=== PATIENT | female | born 1955 | race African-American/Black ===

== ENCOUNTER 2021-07-12 11:00 | Observation (INO) | payer MEDICARE ==
[~2021-07-12] VITALS: Ht 172.7 cm; Wt 109.8 kg
[2021-07-12 13:38] LABS: BASOPHILS % 0.3 % (0.0-1.0); EOSINOPHILS # (AUTO) 0.4 (0.0-0.4); HEMATOCRIT 35.6 % (34.2-44.1); HEMOGLOBIN 11.3 g/dL (12.0-16.0); LYMPHOCYTES # (AUTO) 1.9 (1.0-3.2); LYMPHOCYTES % 26.7 % (18.0-39.1); MEAN CORPUSCULAR HEMOGLOBIN 31.3 pg (28-32); MEAN CORPUSCULAR HGB CONC 31.7 g/dL (31-35); MEAN CORPUSCULAR VOLUME 98.6 fL (81-99); MONOCYTES # (AUTO) 0.6 (0.2-0.8); MONOCYTES % 7.9 % (4.4-11.3); NEUTROPHILS # (AUTO) 4.3 (2.1-6.9); NEUTROPHILS % 59.8 % (38.7-80.0); PLATELET COUNT 179 x10e3/uL (140-360); RED BLOOD COUNT 3.61 x10e6/uL (3.6-5.1); RED CELL DISTRIBUTION WIDTH 14.2 % (11.7-14.4)
[2021-07-12] MEDS ORDERED: ONDANSETRON HCL INJ 2MG/ML 2ML 2 MG/ML VIAL IV PRN (14:00)
[2021-07-12 14:08] LABS: INR 1.14; PROTHROMBIN TIME 15.6 seconds (11.9-14.5)
[2021-07-12 14:09] LABS: PARTIAL THROMBOPLASTIN TIME 43.5 seconds (23.8-35.5)
[2021-07-12 14:19] LABS: ALBUMIN 3.4 g/dL (3.5-5.0); ALBUMIN/GLOBULIN RATIO 0.7 (0.8-2.0); ANION GAP 22.2 mmol/L (8-16); CALCIUM 8.6 mg/dL (8.4-10.2); CREATININE, SERUM 8.06 mg/dL (0.57-1.11); MAGNESIUM 2.3 MG/DL (1.3-2.1); POTASSIUM 5.2 mmol/L (3.5-5.1)
[2021-07-12 14:27] LABS: CREATINE KINASE MB 0.9 ng/mL (0-5.0)
[2021-07-12] MEDS ORDERED: SOD POLYSTYRENE SULFONATE SUSP 15 GM/60 ML BTL PO ONE (16:30)
[2021-07-12 16:44] VITALS: BP 105/90
[2021-07-12 16:49] VITALS: BP 105/90
[2021-07-12 17:07] LABS: EOSINOPHILS % (MANUAL) 8 % (0-7); LYMPHOCYTES % (MANUAL) 24 % (19-48); MONOCYTES % (MANUAL) 8 % (3.4-9.0); NEUTROPHILS % (MANUAL) 58 % (40-74)
[2021-07-12 17:08] LABS: PLATELET ESTIMATE ADEQUATE; PLATELET MORPHOLOGY COMMENT NORMAL; RBC MORPHOLOGY COMMENT NORMAL
[2021-07-12 19:56] VITALS: BP 105/90
[2021-07-12 20:00] VITALS: BP 89/53
[2021-07-13] VITALS (7 sets, daily range): BP systolic 93–141; BP diastolic 57–88
[2021-07-13 05:44] LABS: BASOPHILS % 0.3 % (0.0-1.0); EOSINOPHILS # (AUTO) 0.3 (0.0-0.4); EOSINOPHILS % 4.8 % (0.0-6.0); HEMATOCRIT 31.5 % (34.2-44.1); HEMOGLOBIN 10.2 g/dL (12.0-16.0); LYMPHOCYTES # (AUTO) 1.6 (1.0-3.2); MEAN CORPUSCULAR HEMOGLOBIN 31.3 pg (28-32); MEAN CORPUSCULAR HGB CONC 32.4 g/dL (31-35); MEAN CORPUSCULAR VOLUME 96.6 fL (81-99); MONOCYTES # (AUTO) 0.7 (0.2-0.8); MONOCYTES % 9.5 % (4.4-11.3); NEUTROPHILS # (AUTO) 4.4 (2.1-6.9); NEUTROPHILS % 62.1 % (38.7-80.0); PLATELET COUNT 144 x10e3/uL (140-360); RED BLOOD COUNT 3.26 x10e6/uL (3.6-5.1)
[2021-07-13 06:16] LABS: ALBUMIN 3.1 g/dL (3.5-5.0); ALBUMIN/GLOBULIN RATIO 0.8 (0.8-2.0); ANION GAP 21.9 mmol/L (8-16); CALCIUM 7.9 mg/dL (8.4-10.2); CREATININE, SERUM 9.55 mg/dL (0.57-1.11); POTASSIUM 4.9 mmol/L (3.5-5.1)
[2021-07-13 06:22] LABS: CHOL/HDL RATIO 3.3 (3.0-3.6); MAGNESIUM 2.3 MG/DL (1.3-2.1)
[2021-07-13 06:34] LABS: FREE THYROXINE INDEX 1.7667 (1.4-3.8); THYROID STIMULATING HORMONE 2.317 uIU/mL (0.350-4.940)
[2021-07-13 06:42] LABS: CREATINE KINASE MB 0.8 ng/mL (0-5.0)
[2021-07-13] MEDS ORDERED: SODIUM CHLORIDE 0.9% 1000ML 2,000 ML IV PRN (08:30)
[2021-07-13] MEDS ORDERED: SODIUM CHLORIDE 0.9% 250ML 500 ML IV PRN (08:30)
[2021-07-13] MEDS ORDERED: OLANZAPINE5 MG PO ×2 (11:46→18:31)
[2021-07-13] MEDS ORDERED: MIDAZOLAM HCL 2 MG/2 ML VIAL ONE ×2 (13:50→16:42)
[2021-07-13] MEDS ORDERED: FENTANYL CITRATE/PF 100MCG/2 ML INJ ONE ×2 (13:50→16:43)
[2021-07-13] MEDS ORDERED: SODIUM CHLORIDE 0.9% 1000ML 2,000 ML ONE (13:51)
[2021-07-13] MEDS ORDERED: SODIUM CHLORIDE 0.9% 250ML 250 ML ONE (13:51)
[2021-07-13] MEDS ORDERED: Vancomycin IV 1 GM VIAL ONE (13:51)
[2021-07-13] MEDS ORDERED: SODIUM CHLORIDE 0.9% 500ML 500 ML ONE (13:51)
[2021-07-13] MEDS ORDERED: GENTAMICIN SULFATE 40 MG/ML 2 ML VIAL ONE (13:58)
[2021-07-13] MEDS ORDERED: LIDOCAINE 1% W/EPINEPHRINE 20 ML VIAL ONE (16:20)
[2021-07-13] MEDS ORDERED: LIDOCAINE HCL 1% LOCAL INJ 20 ML VIAL ONE (16:26)
[2021-07-13] MEDS ORDERED: METHYLPREDNISOLONE SOD SUCC 125 MG/2ML VIAL ONE (16:37)
[2021-07-13] MEDS ORDERED: ACETAMINOPHEN/CODEINE 300MG - 30MG TAB PO PRN (17:45)
[2021-07-13] MEDS ORDERED: Morphine 2mg Syringe 2 MG/ML SYR IV PRN (17:45)
[2021-07-13] MEDS ORDERED: CLONAZEPAM0.5 MG PO (18:31)
[2021-07-13] MEDS ORDERED: PROVENTIL HFA6.7 GM INH (18:31)
[2021-07-13] MEDS ORDERED: PEPCID20 MG PO (18:31)
[2021-07-13] MEDS ORDERED: ELIQUIS2.5 MG PO (18:31)
[2021-07-13] MEDS ORDERED: QUETIAPINE FUM100 MG PO (18:31)
[2021-07-13 20:05] LABS: CREATINE KINASE MB 0.9 ng/mL (0-5.0)
[2021-07-14 00:32] VITALS: BP 132/73
[2021-07-14 04:00] VITALS: BP 153/107
[2021-07-14] MEDS ORDERED: CLONAZEPAM 0.5 MG TAB PO PRN (06:15)
[2021-07-14 08:00] VITALS: BP 110/66
[2021-07-14 08:32] VITALS: BP 110/66
[2021-07-14] MEDS ORDERED: OLANZAPINE 5 MG TAB PO SCH (09:00)
[2021-07-14] MEDS ORDERED: APIXAB 2.5 MG TABLET PO SCH (09:00)
[2021-07-14] MEDS ORDERED: MINOCYCLINE HCL50 MG PO (09:55)
[2021-07-14] MEDS ORDERED: QUETIAPINE FUMARATE 100 MG TAB PO SCH (21:00)
[2021-07-14] MEDS ORDERED: FAMOTIDINE 20 MG TAB PO SCH (21:00)
== END 2021-07-14 12:00 | disposition home or self-care (01) ==
LOC: ER 11:05 → INTOOBSV 12:15 → ERHOLD 12:15 → MED/SURG 16:14
PROVIDERS: ADMIT Internal Medicine; ATTEND Internal Medicine
DX: T82.118A Breakdown (mechanical) of other cardiac electronic device, initial encounter (principal); I12.0 Hypertensive chronic kidney disease with stage 5 chronic kidney disease or end stage renal disease; N18.6 End stage renal disease; I49.5 Sick sinus syndrome; I48.19 Other persistent atrial fibrillation; E78.5 Hyperlipidemia, unspecified; Z99.2 Dependence on renal dialysis; Y71.8 Miscellaneous cardiovascular devices associated with adverse incidents, not elsewhere classified; Z88.0 Allergy status to penicillin; Z88.8 Allergy status to other drugs, medicaments and biological substances; Z91.041 Radiographic dye allergy status; I82.B22 Chronic embolism and thrombosis of left subclavian vein
CPT/HCPCS: 33215; 36415 ×2; 71045 ×2; 75820; 80053 ×2; 80061; 82550 ×2; 82553 ×2; 83036; 83735 ×2; 83880; 84100; 84436; 84443; 84479; 84484 ×2; 85025 ×2; 85610; 85730; 90935; 93005; 94799; 99284; C1769; G0378 ×3; J1580; J2001; J2250; J2930; J3010; J3370; J7030; J7040; J7050; U0002; 99152; 99153